=== PATIENT | male | born 1950 ===

== ENCOUNTER 2017-11-18 02:13 | Emergency (ER) | payer OTHER ==
[2017-11-18 02:32] VITALS: RESP 18; O2SAT 96
[2017-11-18] MEDS ORDERED: Amoxicillin-Clav 875-125 mg Tab PO STA (02:44)
[2017-11-18] MEDS ORDERED: Lidocaine 2% Inj (20ml) INFIL ONE (02:44)
[2017-11-18] MEDS ORDERED: Tetanus/Diphtheria Toxoids 0.5 ml Syringe IM ONE ×2 (02:44→02:57)
--- NOTE | 2017-11-18 02:45 | C.PDOC ---
History Of Present Illness 67 yo male come in for evaluation of Left facial laceration sustained [employer] while at work. Laceration noted to Left cheek area, mild bloody oozing. Otherwise, pt denies LOC, syncope, dizziness, visual changes, earache, nasal deformity, denies weakness of facial muscle, or facial deformity, denies any other active complaints related to accident. Ambulate to ED for evaluation, not in any apparent distress. Time Seen by Provider: 11/18/17 02:33 Chief Complaint (Nursing): Abnormal Skin Integrity History Per: Patient Onset/Duration Of Symptoms: Sudden Onset Past Medical History Reviewed: Historical Data, Nursing Documentation, Vital Signs Vital Signs: Last Vital Signs Temp 98.6 F 11/18/17 02:25 Pulse 96 H 11/18/17 02:25 Resp 18 11/18/17 02:25 BP 149/93 H 11/18/17 02:25 Pulse Ox 96 11/18/17 04:08 - Medical History PMH: No Chronic Diseases Surgical History: Appendectomy Family History: States: No Known Family Hx - Social History Hx Tobacco Use: Yes Hx Alcohol Use: Yes Hx Substance Use: No - Immunization History Hx Tetanus Toxoid Vaccination: No Hx Influenza Vaccination: No Hx Pneumococcal Vaccination: No Review Of Systems Except As Marked, All Systems Reviewed And Found Negative. Constitutional: Negative for: Fever, Chills Eyes: Negative for: Pain, Vision Change ENT: Positive for: Mouth Pain (Left facial laceration). Negative for: Ear Discharge, Nose Discharge Cardiovascular: Negative for: Light Headedness Respiratory: Negative for: Shortness of Breath Gastrointestinal: Negative for: Nausea, Vomiting, Diarrhea Genitourinary: Negative for: Incontinence Musculoskeletal: Negative for: Neck Pain, Hand Pain Skin: Positive for: Lesions Neurological: Negative for: Weakness, Numbness, Altered Mental Status, Headache , Dizziness Physical Exam - Physical Exam Appears: Well, Non-toxic Skin: Normal Color, Warm, Other (Left cheek laceration just belo zygoma 4cm length, linear, through dermis, mild bloody oozing noted. No wound FB.) Head: Normacephalic Eye(s): bilateral: PERRL, EOMI Ear(s): Bilateral: Normal Nose: No Flaring, No Discharge, No Deformity, No Tenderness Oral Mucosa: Moist, No Drooling, No Trismus Tongue: No Laceration Lips: No Laceration Throat: No Erythema, No Drooling Neck: Normal ROM, Trachea Midline, No Midline Cervical Tenderness, No Paracervical Tenderness, No Step Off Deformity, Supple Extremity: Normal ROM, No Tenderness, No Deformity, No Swelling Neurological/Psych: Oriented x3, Normal Speech, Normal Cranial Nerves (5 and 7- normal function on left side of face), Normal Motor, Normal Sensation, Normal Reflexes ED Course And Treatment O2 Sat by Pulse Oximetry: 96 Pulse Ox Interpretation: Normal Progress Note: On re-evaluation, pt is afebrile, hemodynamicaly stable. hemodynamicaly non-toxic. Tolerate Po well in ED. Head: laceration over left cheek repaired w/sutures w/o difficulty. ENT: no acute findings, no drooling, no trismus. neck: SUpple. Neurologicaly intact. tetanus, oral abx given. Pt advised on course of ds. ref. to f/u with PMD In 2 days for re-eavl. return to ED if any worsening or new changes. Laceration - Laceration Repair Left cheek Wound Length (In cm): 4cm Description Of Wound: Linear Anesthesia: Lidocaine 2% Wound Examination: Irrigated With Saline, No FB With Wound Exploration, No Tendon Injury With Wound Exploration Wound Closure: Suture (5-0) Suture Technique And Material Used: Interrupted, Nylon (#9), Chromic (5-0#3) Wound Complexity: Intermediate Disposition Counseled Patient/Family Regarding: Diagnosis, Need For Followup, Rx Given - Disposition Disposition: HOME/ ROUTINE Disposition Time: 04:01 Condition: STABLE Additional Instructions: Keep wound clean, dry Apply antibiotic cream topically take antibiotic as prescribed Suture removal in 5-7 days Return to Ed at any time if any sign of infection-pain, fever, wound redness or discharges or any other new changes. Prescriptions: Amoxicillin/Clavulanate [Augmentin 875 MG-125 MG] 1 tab PO BID #14 tab Bacitracin OINT 1 applic TP BID #1 tube Instructions: Laceration Repair With Stitches (DC) Forms: [employer] (Sinhala), Work Excuse - Clinical Impression Clinical Impression: Facial contusion, Cheek laceration
[2017-11-18] MEDS ORDERED: Amoxicillin-Clav 875-125 mg Tab PO ONE (02:53)
[2017-11-18] MEDS ORDERED: Bacitracin 500 Units/gm Oint Foilpak UD ONE (04:19)
[2017-11-18 04:27] VITALS: BP 120/81; PULSE 102; TEMP 99.3
== END 2017-11-18 04:28 | disposition home or self-care (01) ==
LOC: C.ER 02:13
DX: S01.412A Laceration without foreign body of left cheek and temporomandibular area, initial encounter (principal); W22.8XXA Striking against or struck by other objects, initial encounter; Y92.89 Other specified places as the place of occurrence of the external cause; Y99.0 Civilian activity done for income or pay; Z23 Encounter for immunization

== ENCOUNTER 2017-11-29 03:37 | Emergency (ER) | payer OTHER ==
[2017-11-29 03:54] VITALS: BP 131/85; PULSE 101; TEMP 98.2; O2SAT 99
--- NOTE | 2017-11-29 04:36 | C.PDOC ---
History Of Present Illness Pt presents to ER for suture removal to left facial area placed 9 days ago. pt denies any other c/o Time Seen by Provider: 11/29/17 03:56 Chief Complaint (Nursing): Abnormal Skin Integrity History Per: Patient History/Exam Limitations: no limitations Location Of Injury: Left: Face Past Medical History Vital Signs: Last Vital Signs Temp 98.2 F 11/29/17 03:48 Pulse 101 H 11/29/17 03:48 Resp 16 11/29/17 03:48 BP 131/85 11/29/17 03:48 Pulse Ox 99 11/29/17 03:48 - Medical History PMH: No Chronic Diseases Surgical History: Appendectomy Family History: States: Unknown Family Hx - Social History Hx Tobacco Use: Yes Hx Alcohol Use: Yes Hx Substance Use: No - Immunization History Hx Tetanus Toxoid Vaccination: No Hx Influenza Vaccination: No Hx Pneumococcal Vaccination: No Review Of Systems Constitutional: Negative for: Fever Skin: Positive for: Other (wound, face) Physical Exam - Physical Exam Appears: Well, Non-toxic Skin: Other (sutured laceration to left facial / cheek area over maxillary area with scab tissue over sutures, no erythema, swelling or drainage) ED Course And Treatment O2 Sat by Pulse Oximetry: 99 Pulse Ox Interpretation: Normal Reevaluation Time: 04:37 Disposition Counseled Patient/Family Regarding: Diagnosis, Need For Followup - Disposition Disposition: HOME/ ROUTINE Disposition Time: 04:38 Condition: STABLE Additional Instructions: Follwo wound care instructions Return to ER if worse Instructions: Stitches Removal - Clinical Impression Clinical Impression: Encounter for removal of sutures
[2017-11-29 04:58] VITALS: RESP 18
== END 2017-11-29 04:51 | disposition home or self-care (01) ==
LOC: C.ER 03:37
DX: Z48.02 Encounter for removal of sutures (principal)